=== PATIENT | female | born 1990 | race Caucasian/White ===

== ENCOUNTER 2017-12-16 01:50 | Emergency (ER) | payer SELFPAY ==
[~2017-12-16] VITALS: Ht 154.9 cm; Wt 63.5 kg
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
--- NOTE | 2017-12-16 02:15 | NUR ---
LAB AT BEDSIDE FOR DRAW.
[2017-12-16 02:28] LABS: BASOPHILS % (AUTO) 0.3 % (0.0-2.0); HEMATOCRIT 39 % (33-45); HEMOGLOBIN 13.5 g/dL (11.5-14.8); LYMPHOCYTES % (AUTO) 36.3 % (20.0-44.0); MEAN CORPUSCULAR HGB CONC 35 g/dl (31.0-36.0); MEAN CORPUSCULAR VOLUME 89 fL (82-100); MONOCYTES # (AUTO) 0.7 /CMM (0.1-1.30); NEUTROPHILS # (AUTO) 6.1 /CMM (1.8-8.9); NEUTROPHILS % (AUTO) 55.4 % (43.0-81.0); PLATELET COUNT (AUTO) 269 /CMM (150-450); RDW COEFFICIENT OF VARIATION 11.8 (11.5-15.0); WHITE BLOOD COUNT (AUTO) 11.1 K/uL (4.3-11.0)
[2017-12-16] MEDS ORDERED: ONDANSETRON HCL/PF 4 MG/2 ML VIAL ONE (02:50)
--- NOTE | 2017-12-16 02:55 | NUR ---
20G IV TO R AC X 1 ATTEMPT USING ASEPTIC TECH. IV FLUSHES EASILY WITH NS, NO S/S INFILTRATION NOTED AT THIS TIME.
[2017-12-16] MEDS ORDERED: METOCLOPRAMIDE HCL 10 MG/2 ML VIAL ONE (02:57)
[2017-12-16 02:59] LABS: CALCIUM, SERUM 8.9 mg/dL (8.5-10.1); CREATININE 0.8 mg/dL (0.6-1.3); POTASSIUM 3.4 mmol/L (3.5-5.1)
[2017-12-16] MEDS ORDERED: ONDANSETRON HCL/PF 4 MG/2 ML VIAL IM ONE (03:00)
[2017-12-16] MEDS: IV NS 0.9% 1,000 ML BAG IV ONE ×2 (03:00→03:21)
[2017-12-16] MEDS: METOCLOPRAMIDE HCL 10 MG/2 ML VIAL IV ONE ×2 (03:00→03:22)
[2017-12-16 03:05] LABS: BILIRUBIN,DIRECT 0.1 mg/dL (0.0-0.2); BILIRUBIN,TOTAL 0.4 mg/dL (0.2-1.0)
[2017-12-16 03:06] LABS: SALICYLATE 1.5 mg/dL (2.8-20.0)
[2017-12-16] MEDS ORDERED: POTASSIUM CHLORIDE 20 MEQ TAB.PRT.SR PO ONE ×2 (03:30→05:20)
--- NOTE | 2017-12-16 04:57 | NUR ---
PT RESTING QUIETLY, AROUSES EASILY TO VOICE. VSS. RN TO CONTINUE MONITORING PROVIDING SAFETY/COMFORT MEASURES.
--- NOTE | 2017-12-16 05:19 | NUR ---
URINE SPECIMEN OBTAINED AND SENT TO THE LAB.
--- NOTE | 2017-12-16 05:33 | NUR ---
IV removed. Catheter intact and site benign. Pressure and 4x4 applied to site. No bleeding noted. Patient is awake and alert to self, day, and place. Patient ambulatory with a steady gait. Patient discharged to with boyfriend home in stable condition. Written and verbal after care instructions given, instructed not to drive. Patient verbalizes understanding of instruction.
[2017-12-16 05:37] VITALS: BP 114/58
[2017-12-16 05:37] LABS: APPEARANCE,URINE CLEAR (CLEAR); BILIRUBIN,URINE NEGATIVE (NEGATIVE); BLOOD, URINE NEGATIVE Ery/uL (NEGATIVE); COLOR,URINE YELLOW (YELLOW); KETONES,URINE NEGATIVE (NEGATIVE); LEUKOCYTE ESTERASE ,URINE NEGATIVE (NEGATIVE); NITRITE, URINE NEGATIVE (NEGATIVE); PH,URINE 5.5 (5.0-8.0); PROTEIN,URINE NEGATIVE (NEGATIVE); UGLUCOSE NEGATIVE (NEGATIVE); UROBILINOGEN,URINE 0.2 EU/dL (0.2)
== END 2017-12-16 05:38 | disposition home or self-care (01) ==
LOC: ER 01:51
DX: F10.129 Alcohol abuse with intoxication, unspecified (principal); E87.6 Hypokalemia
CPT/HCPCS: 36415; 80048; 80076; 80305; 80329; 81001; 84703; 85025; 96361; 96372; 96374; 99284; A4216; A4606; G0480 ×2; J2405; J2765; J7030; Z7610; 81000-TC